=== PATIENT | female | born 1985 | race Caucasian/White ===

== ENCOUNTER 2016-09-29 09:04 | Emergency (ER) | payer OTHER ==
[2016-09-29] MEDS ORDERED: HYDROcodone 10MG/APAP 325MG 1 EA TAB PO ONE (09:15)
[2016-09-29] MEDS ORDERED: HYDROcodone 10MG/APAP 325MG 1 EA TAB ONE (09:16)
--- NOTE | 2016-09-29 09:19 | ED.PDOC ---
History of Present Illness - General Chief Complaint: Burn Stated Complaint: Oil in louise popped and burned the palm of her hand and fingers Time Seen by Provider: 09/29/16 09:12 Source: patient, RN notes reviewed, Vital Signs reviewed Exam Limitations: no limitations - History of Present Illness Initial Comments: Patient was cooking this morning. She reports the oil in the louise formed a bubble that popped into her palm. She has painful gomez on the palm of her L hand and 3rd-5th fingers, palmar aspect. Timing/Duration: 1/2 hour Severity: severe Improving Factors: cold therapy Worsening Factors: movement, other - Touching Associated Symptoms: denies symptoms Allergies/Adverse Reactions: Allergies CI Pigment Blue 63 [From Cymbalta] Allergy (Verified 09/29/16 09:31) Doxycycline Allergy (Verified 09/29/16 09:31) Duloxetine [From Cymbalta] Allergy (Verified 09/29/16 09:31) Pregabalin [From Lyrica] Allergy (Verified 09/29/16 09:31) Sulfa Antibiotics Allergy (Verified 09/29/16 09:31) Home Medications: Ambulatory Orders Acetaminophen W/ Codeine [Tylenol W/ CODEINE #3] 1 - 2 ea PO Q4HR PRN #20 09/29 Insulin Glargine [Lantus Solostar] 35 units SL DAILY 09/29/16 Insulin, Reg.(Human) [HumuLIN R] 12 unit SUBCU DAILY PRN 09/29/16 Ondansetron HCl [Zofran] 4 mg PO DAILY PRN 09/29/16 Silver Sulfadiazine [Silvadene] 1 % TOP BID #100 gm 09/29/16 Review of Systems - Review of Systems Constitutional: States: no symptoms reported Respiratory: States: no symptoms reported Musculoskeletal: States: no symptoms reported Skin: States: see HPI Neurological: States: no symptoms reported. Denies: numbness, paresthesia, tingling, weakness All other Systems: No Change from Baseline Family Medical History - Family History Grandparents Family History: Unknown Physical Exam - Physical Exam General Appearance: Alert, Obvious distress - due to pain in L hand, Well Developed, Well Groomed, Well Hydrated, Well Nourished Respiratory: no respiratory distress Cardiovascular/Chest: normal peripheral pulses Peripheral Pulses: radial,left: 2+ Extremity: normal range of motion Neurologic: no motor/sensory deficits, alert, normal mood/affect, oriented x 3 Skin Exam: other - 1st & 2nd degree burn on palm of L hand - mostly on heel of hand and volar aspect of 5th finger. Good, brisk capillary refill. Sensation intact. Burn covers ~1%BSA Progress - Progress Progress: 09/29/16 09:22 Patient is a Type 1 diabetic so will check FS blood sugar since she has not eaten this morning. 09/29/16 09:36 Glucose is 364 so will give Humulin Reg 12u SQ 09/29/16 10:13 Pain has decreased from 8/10 to 6/10 one hour after giving [place] 10mg PO. Will give another 5mg and see how she does. Departure - Departure Clinical Impression: Burn of palm of hand, left, second degree Time of Disposition: 10:51 Disposition: Discharge to Home or Self Care Condition: Good Departure Forms: ED Discharge - Pt. Copy, Patient Portal Self Enrollment Instructions: DI for Gomez Diet: resume usual diet Activity: increase activity as tolerated, no pushing/pulling with affected limb Prescriptions: Acetaminophen W/ Codeine [Tylenol W/ CODEINE #3] 1 - 2 ea PO Q4HR PRN #20 PRN Reason: Moderate To Severe Pain Silver Sulfadiazine [Silvadene] 1 % TOP BID #100 gm Home Medications: Ambulatory Orders Acetaminophen W/ Codeine [Tylenol W/ CODEINE #3] 1 - 2 ea PO Q4HR PRN #20 09/29 Insulin Glargine [Lantus Solostar] 35 units SL DAILY 09/29/16 Insulin, Reg.(Human) [HumuLIN R] 12 unit SUBCU DAILY PRN 09/29/16 Ondansetron HCl [Zofran] 4 mg PO DAILY PRN 09/29/16 Silver Sulfadiazine [Silvadene] 1 % TOP BID #100 gm 09/29/16 Additional Instructions: Recheck with PCP in 3-5 days
[2016-09-29] MEDS ORDERED: INSULIN, REG.(HUMAN) 100 U/ML VIAL SUBCU ONE (09:35)
[2016-09-29] MEDS ORDERED: HYDROcodone 5MG/APAP 325MG 1 EA TAB PO ONE (10:12)
[2016-09-29] MEDS ORDERED: SILVER SULFADIAZINE 1 % 25 GM TUBE TOP ONE (10:29)
[2016-09-29 10:32] VITALS: O2SAT 100
[2016-09-29 11:28] VITALS: BP 119/78; TEMP 98.4
== END 2016-09-29 11:15 | disposition home or self-care (01) ==
LOC: ER 09:04
DX: T23.252A Burn of second degree of left palm, initial encounter (principal); E10.9 Type 1 diabetes mellitus without complications; Z88.8 Allergy status to other drugs, medicaments and biological substances; Z88.2 Allergy status to sulfonamides; Z91.048 Other nonmedicinal substance allergy status; Z79.899 Other long term (current) drug therapy; Z79.4 Long term (current) use of insulin; X10.2XXA Contact with fats and cooking oils, initial encounter; Y93.G3 Activity, cooking and baking

== ENCOUNTER 2017-04-04 10:07 | Emergency (ER) | payer OTHER ==
[2017-04-04] MEDS ORDERED: ONDANSETRON INJ 4 MG/2 ML VIAL IV ONE (10:37)
[2017-04-04] MEDS ORDERED: SODIUM CHLORIDE 0.9% 1000ML 1,000 ML IVS ONE ×3 (10:37→17:36)
--- NOTE | 2017-04-04 10:41 | ED.PDOC ---
History of Present Illness - General Chief Complaint: Diabetic Complaint Stated Complaint: Dx w/ pneumonia, concerned she is in DKA Time Seen by Provider: 04/04/17 10:20 Source: patient, RN notes reviewed, Vital Signs reviewed Exam Limitations: no limitations - History of Present Illness Initial Comments: Patient reports she was diagnosed with pneumonia on 04/02. She is concerned she is developing DKA. Reports she has had N/V with ketones in her urine for the past 4 days. This morning she woke up SOB and got worried. She is on Zithromax and Cefpodoxime. Timing/Duration: getting worse - over past 4 days Severity: moderate Improving Factors: nothing Worsening Factors: nothing Associated Symptoms: cough, loss of appetite, malaise, nausea/vomiting, shortness of breath, weakness Allergies/Adverse Reactions: Allergies CI Pigment Blue 63 [From Cymbalta] Allergy (Verified 09/29/16 09:31) Doxycycline Allergy (Verified 09/29/16 09:31) Duloxetine [From Cymbalta] Allergy (Verified 09/29/16 09:31) Pregabalin [From Lyrica] Allergy (Verified 09/29/16 09:31) Sulfa Antibiotics Allergy (Verified 09/29/16 09:31) Home Medications: Ambulatory Orders Acetaminophen W/ Codeine [Tylenol W/ CODEINE #3] 1 - 2 ea PO Q4HR PRN #20 09/29 Insulin Glargine [Lantus Solostar] 35 units SL DAILY 09/29/16 Insulin, Reg.(Human) [HumuLIN R] 12 unit SUBCU DAILY PRN 09/29/16 Ondansetron HCl [Zofran] 4 mg PO DAILY PRN 09/29/16 Silver Sulfadiazine [Silvadene] 1 % TOP BID #100 gm 09/29/16 Review of Systems - Review of Systems Constitutional: States: malaise, weakness EENTM: States: no symptoms reported Respiratory: States: see HPI, cough, short of breath Cardiology: States: no symptoms reported. Denies: chest pain Gastrointestinal/Abdominal: States: see HPI, nausea, vomiting. Denies: abdominal pain Musculoskeletal: States: no symptoms reported Skin: States: no symptoms reported Neurological: States: no symptoms reported All other Systems: No Change from Baseline Past Medical History (General) - Patient Medical History Hx Stroke: No Hx Congestive Heart Failure: No Hx Diabetes: Yes Hx Cancer: No Hx Hepatitis C: No - Vaccination History Hx Tetanus, Diphtheria Vaccination: Yes Hx Influenza Vaccination: Yes Hx Pneumococcal Vaccination: Yes - Social History Hx Tobacco Use: Yes Hx Chewing Tobacco Use: No Hx Alcohol Use: No Hx Substance Use: No Hx Substance Use Treatment: No Hx Depression: No Hx Physical Abuse: No Hx Emotional Abuse: No Hx Suspected Abuse: No - Female History Patient : No Family Medical History - Family History Grandparents Family History: Unknown Physical Exam - Physical Exam General Appearance: Frail, Ill Appearing, Well Developed Ears, Nose, Throat: hearing grossly normal Neck: non-tender, full range of motion, supple, normal inspection Respiratory: chest non-tender, no respiratory distress, no accessory muscle use , rhonchi - throughout Cardiovascular/Chest: no edema, no gallop, no JVD, no murmur, tachycardia Gastrointestinal/Abdominal: normal bowel sounds, soft, no organomegaly, no pulsatile mass, tenderness - mild, generalized Extremity: normal inspection Neurologic: alert, normal mood/affect, oriented x 3 Skin Exam: normal color, warm/dry Comments: Vital Signs 04/04/17 10:08 Temperature 97.5 F L Pulse Rate [ 128 H Left Brachial] Respiratory 22 Rate Blood Pressure 103/75 [Left Arm] O2 Sat by Pulse 100 Oximetry Progress - Progress Progress: 04/04/17 12:00 Chest X-ray is normal. No signs of pneumonia. Blood sugar is 395 with small ketones. She is still nauseated so will give IV phenergan and start Insulin drip to see if we can get things settled back down for her. If IVF and Insulin don't improve her mild DKA will discuss with Hospitalist. 04/04/17 13:00 Patient has been resting comfortably since getting IV Phenergan. Will recheck FSBS 04/04/17 14:22 Blood sugar now 190. Will stop insulin drip and recheck BMP and Ketones. 04/04/17 15:46 Patient requesting more phenergan. When advised it is too early for another dose she told the nurse her diabetes makes her metabolize medications faster and started wretching again. She also wants to be sure she goes home with a prescription for Phenergan. 04/04/17 17:18 Blood sugar bumped back up to 288, CO2 went down to 6. Discussed with Digna Durham NP. Will get ABG and if looks ok with admit. 04/04/17 17:45 pH is 7.010 - will restart insulin drip, another L of NS and transfer to [facility] - Results/Orders Results/Orders: Laboratory Tests 04/04/17 04/04/17 04/04/17 10:35 11:00 11:00 WBC 10.7 RBC 5.21 Hgb 16.9 H Hct 51.7 H MCV 99.2 H MCH 32.4 H MCHC 32.6 L RDW 14.6 H Plt Count 277 MPV 8.9 Absolute Neuts (auto) 7.80 H Absolute Lymphs (auto) 2.30 Absolute Monos (auto) 0.60 Absolute Eos (auto) 0.00 Absolute Basos (auto) 0.00 Neutrophils % 72.3 Lymphocytes % 21.7 Monocytes % 5.4 Eosinophils % 0.2 L Basophils % 0.4 pCO2 pO2 HCO3 ABG pH ABG O2 Saturation ABG Base Excess ABG Deoxyhemoglobin Oxyhemoglobin % Carboxyhemoglobin % Methemoglobin % Sat Calc Total Hemoglobin Sodium 134 L Potassium 4.8 Chloride 105 Carbon Dioxide 8 L* Anion Gap 25.8 H BUN 7 Creatinine 0.73 BUN/Creatinine Ratio 9.6 L POC Glucose 278 H Random Glucose 395 H Serum Osmolality 282.7 Calcium 9.9 Total Bilirubin 1.0 AST 12 ALT 15 Alkaline Phosphatase 133 H Serum Total Protein 8.8 H Albumin 5.1 Globulin 3.7 H Albumin/Globulin Ratio 1.4 Urine Color Urine Appearance Urine pH Ur Specific Maple Urine Protein Urine Glucose (UA) Urine Ketones Urine Blood Urine Nitrite Urine Bilirubin Urine Urobilinogen Ur Leukocyte Esterase Urine RBC Urine WBC Ur Epithelial Cells Urine Bacteria Serum Ketones 04/04/17 04/04/17 04/04/17 11:00 12:44 13:07 WBC RBC Hgb Hct MCV MCH MCHC RDW Plt Count MPV Absolute Neuts (auto) Absolute Lymphs (auto) Absolute Monos (auto) Absolute Eos (auto) Absolute Basos (auto) Neutrophils % Lymphocytes % Monocytes % Eosinophils % Basophils % pCO2 pO2 HCO3 ABG pH ABG O2 Saturation ABG Base Excess ABG Deoxyhemoglobin Oxyhemoglobin % Carboxyhemoglobin % Methemoglobin % Sat Calc Total Hemoglobin Sodium Potassium Chloride Carbon Dioxide Anion Gap BUN Creatinine BUN/Creatinine Ratio POC Glucose 251 H Random Glucose Serum Osmolality Calcium Total Bilirubin AST ALT Alkaline Phosphatase Serum Total Protein Albumin Globulin Albumin/Globulin Ratio Urine Color Yellow Urine Appearance Clear Urine pH 5.0 Ur Specific Maple >= 1.030 Urine Protein 100 H Urine Glucose (UA) 500 H Urine Ketones >=160 Urine Blood Large H Urine Nitrite Negative Urine Bilirubin Small H Urine Urobilinogen 0.2 Ur Leukocyte Esterase Negative Urine RBC 10-20 H Urine WBC 0 Ur Epithelial Cells 3-5 Urine Bacteria 0 Serum Ketones Small 04/04/17 04/04/17 04/04/17 14:06 14:48 16:34 WBC RBC Hgb Hct MCV MCH MCHC RDW Plt Count MPV Absolute Neuts (auto) Absolute Lymphs (auto) Absolute Monos (auto) Absolute Eos (auto) Absolute Basos (auto) Neutrophils % Lymphocytes % Monocytes % Eosinophils % Basophils % pCO2 pO2 HCO3 ABG pH ABG O2 Saturation ABG Base Excess ABG Deoxyhemoglobin Oxyhemoglobin % Carboxyhemoglobin % Methemoglobin % Sat Calc Total Hemoglobin Sodium 135 136 Potassium 5.1 H 5.0 Chloride 114 H 113 H Carbon Dioxide 9 L* < 7 L* Anion Gap 17.1 21.0 H BUN 7 7 Creatinine 0.71 0.65 BUN/Creatinine Ratio 9.9 L 10.8 POC Glucose 190 H Random Glucose 179 H D 288 H D Serum Osmolality 272.5 L 280.5 Calcium 9.2 9.3 Total Bilirubin AST ALT Alkaline Phosphatase Serum Total Protein Albumin Globulin Albumin/Globulin Ratio Urine Color Urine Appearance Urine pH Ur Specific Maple Urine Protein Urine Glucose (UA) Urine Ketones Urine Blood Urine Nitrite Urine Bilirubin Urine Urobilinogen Ur Leukocyte Esterase Urine RBC Urine WBC Ur Epithelial Cells Urine Bacteria Serum Ketones Small 04/04/17 17:30 WBC RBC Hgb Hct MCV MCH MCHC RDW Plt Count MPV Absolute Neuts (auto) Absolute Lymphs (auto) Absolute Monos (auto) Absolute Eos (auto) Absolute Basos (auto) Neutrophils % Lymphocytes % Monocytes % Eosinophils % Basophils % pCO2 11 L* pO2 128 H* HCO3 2.7 ABG pH 7.010 L* ABG O2 Saturation 98.3 ABG Base Excess -28.9 ABG Deoxyhemoglobin 1.7 Oxyhemoglobin % 96.4 Carboxyhemoglobin % 0.8 Methemoglobin % Sat 1.0 Calc Total Hemoglobin 14.2 Sodium Potassium Chloride Carbon Dioxide Anion Gap BUN Creatinine BUN/Creatinine Ratio POC Glucose Random Glucose Serum Osmolality Calcium Total Bilirubin AST ALT Alkaline Phosphatase Serum Total Protein Albumin Globulin Albumin/Globulin Ratio Urine Color Urine Appearance Urine pH Ur Specific [place] Urine Protein Urine Glucose (UA) Urine Ketones Urine Blood Urine Nitrite Urine Bilirubin Urine Urobilinogen Ur Leukocyte Esterase Urine RBC Urine WBC Ur Epithelial Cells Urine Bacteria Serum Ketones - EKG/XRAY/CT XRAY: chest - No acute disease Departure - Departure Clinical Impression: DKA, type 1 Qualifiers: Diabetes mellitus complication detail: without coma Qualified Code(s): E10.10 - Type 1 diabetes mellitus with ketoacidosis without coma Time of Disposition: 18:06 Disposition: Transfer to Hospital Condition: Serious Departure Forms: ED Discharge - Pt. Copy, Patient Portal Self Enrollment Home Medications: Ambulatory Orders Acetaminophen W/ Codeine [Tylenol W/ CODEINE #3] 1 - 2 ea PO Q4HR PRN #20 09/29 Insulin Glargine [Lantus Solostar] 35 units SL DAILY 09/29/16 Insulin, Reg.(Human) [HumuLIN R] 12 unit SUBCU DAILY PRN 09/29/16 Ondansetron HCl [Zofran] 4 mg PO DAILY PRN 09/29/16 Silver Sulfadiazine [Silvadene] 1 % TOP BID #100 gm 09/29/16 Transfer to Outside Facility - Transfer Information Accepting Provider:: Dr. Em - Hospitalist Accepting Facility: [facility] Reason for Transfer: ICU
[2017-04-04] MEDS ORDERED: INSULIN, REG.(HUMAN) 250 UNITS in SODIUM CHL 0.9% 250ML (AVIVA) 247.5 ML IVPB SCH ×4 (11:30→18:00)
[2017-04-04] MEDS ORDERED: SODIUM CHL 0.9% 250ML (AVIVA) 250 ML IVPB ONE (11:36)
[2017-04-04] MEDS ORDERED: INSULIN, REG.(HUMAN) 100 U/ML VIAL ONE (11:37)
--- NOTE | 2017-04-04 11:38 | RAD ---
EXAM DESCRIPTION: Chest,2 Views CLINICAL HISTORY: Pneumonia/SOB/Cough COMPARISON: None TECHNIQUE: PA/lateral FINDINGS: There is no cardiac or pulmonary abnormality. The lungs are clear. There is no effusion. IMPRESSION: 1. Normal two-view chest. Electronically signed by: Rashaad Jovel MD 04/04/2017 11:37 AM [facility]
[2017-04-04] MEDS ORDERED: PROMETHAZINE HCL INJ 12.5 MG in SODIUM CHLORIDE 0.9% 50ML 50 ML IVPB ONE (11:42)
[2017-04-04] MEDS ORDERED: SODIUM CHLORIDE 0.9% 50ML 50 ML ONE ×2 (11:44→18:57)
[2017-04-04] MEDS ORDERED: PROMETHAZINE HCL INJ 25 MG/ML VIAL ONE ×2 (11:44→18:57)
[2017-04-04] MEDS ORDERED: PROMETHAZINE HCL INJ 25 MG/ML VIAL IM ONE (16:30)
[2017-04-04] MEDS ORDERED: PROMETHAZINE HCL INJ 25 MG in SODIUM CHLORIDE 0.9% 50ML 50 ML IVPB ONE (18:42)
[2017-04-04 18:47] VITALS: BP 132/67; TEMP 97.2; O2SAT 95
== END 2017-04-04 19:45 | disposition short-term general hospital (02) ==
LOC: ER 10:07
DX: E10.10 Type 1 diabetes mellitus with ketoacidosis without coma (principal); Z87.891 Personal history of nicotine dependence; Z79.4 Long term (current) use of insulin; Z79.899 Other long term (current) drug therapy; Z88.2 Allergy status to sulfonamides; Z88.3 Allergy status to other anti-infective agents
CPT/HCPCS: 36415; 36416; 36600; 71020; 80048; 80053; 81001; 82009; 82803; 82805; 82948; 85025; 87040; A4216; J2405; J2550; J7030